=== PATIENT | female | born 1955 | race Two or more races ===

== ENCOUNTER 2025-05-07 20:09 | Emergency (ER) | payer OTHER ==
[~2025-05-07] VITALS: Ht 160 cm; Wt 71.2 kg
[2025-05-07] MEDS ORDERED: AMBIEN5 MG (20:24)
[2025-05-07] MEDS ORDERED: ZOLPIDEM TART1.75 MG (20:25)
[2025-05-07] MEDS ORDERED: LINZESS145 MCG (20:25)
[2025-05-07] MEDS ORDERED: HORIZANT300 MG (20:25)
[2025-05-07] MEDS ORDERED: PROMETHAZINE-D473 M1 (20:25)
[2025-05-07] MEDS ORDERED: ROSUVASTATIN CA20 MG (20:26)
[2025-05-07] MEDS ORDERED: B COMPLEX1 EACH (20:26)
[2025-05-07] MEDS ORDERED: PROTONIX40 MG (20:26)
[2025-05-07] MEDS ORDERED: VITAMIN C100 MG (20:27)
[2025-05-07] MEDS ORDERED: FAMOTIDINE/PF 20 MG/2 ML VIAL IV ONE (21:00)
[2025-05-07] MEDS ORDERED: ONDANSETRON HCL 2 MG/ML VIAL IV ONE (21:00)
[2025-05-07] MEDS ORDERED: 0.9 % SODIUM CHLORIDE 1,000 ML IV SCH (21:00)
[2025-05-07] MEDS ORDERED: ONDANSETRON HCL 2 MG/ML VIAL ONE (21:38)
[2025-05-07] MEDS ORDERED: FAMOTIDINE/PF 20 MG/2 ML VIAL ONE (21:38)
[2025-05-07 22:18] LABS: BASO % 0.3 % (0.1-1.2); EOS # 0.01 (0.04-0.54); EOS % 0.1 % (0.7-7.0); LYMPH # 0.39 (1.18-3.74); LYMPH % 3.5 % (19.3-53.1); MEAN PLATELET VOLUME 9.50 fl (9.4-12.4); MONO # 0.29 (0.24-0.82); MONO % 2.6 % (4.7-12.5); NEUT # 10.29 (1.56-6.13); NEUT % 93.2 % (34.0-71.1); RED CELL DISTRIBUTION WIDTH 12.6 % (11.6-14.4)
[2025-05-07 22:20] LABS: ERYTHROCYTE SEDIMENTATION RATE 22 mm/hr (0-30)
[2025-05-07 22:44] LABS: ALT/SGPT 53.0 U/L (12-78); AST/SGOT 33.0 U/L (15-37); BILIRUBIN TOTAL 0.92 mg/dL (0.3-1.2); BUN CREA RATIO 19.0 (7.0-25.0); CREATININE SERUM 0.86 mg/dL (0.55-1.02); GFR 65.81; GLOBULINA 4.2 G/DL (2.4-3.5); GLUCOSE FASTING 135.0 mg/dL (65-100); OSMOLALITY SERUM 286.0 MOSM/KG (275-295)
[2025-05-08 00:10] LABS: COVID-19 AG NEGATIVE (NEGATIVE)
[2025-05-08 01:29] LABS: URINE APPEARANCE Clear; URINE BILIRRUBIN Small (NEGATIVE); URINE BLOOD Negative; URINE COLOR Dark Yellow; URINE GLUCOSE Negative (NEGATIVE); URINE LEUKOCYTE Negative; URINE NITRATE Negative; URINE PROTEIN Trace (NEGATIVE); URINE UROBILINOGEN 0.2 E.U./dl
[2025-05-08 01:33] LABS: URINE BACTERIA 662.2 uL (0.0-1933); URINE EPITHELIAL CELLS 12.4 uL (0.0-38.8); URINE RBC 14.4 uL (0.0-20.8); URINE WBC 5.5 uL (0.0-23.2)
[2025-05-08 02:20] LABS: URINE CAST 0.28 uL (0.0-1.40); URINE KETONE 80 (NEGATIVE)
[2025-05-08] MEDS ORDERED: PROMETHAZINE HCL 50 MG/ML AMPUL IM ONE (03:04)
[2025-05-08] MEDS ORDERED: PROMETHAZINE HCL 25 MG/ML AMPUL IM STA (03:04)
[2025-05-08] MEDS ORDERED: OxyCODONE HCL ER 10MG TAB (OxyCONTIN) PO STA (05:20)
[2025-05-08] MEDS ORDERED: OXYCONTIN10 M1 PO (06:15)
== END 2025-05-08 06:24 ==
LOC: ER 20:10
PROVIDERS: Student in an Organized Health Care Education/Training Program
DX: I88.0 Nonspecific mesenteric lymphadenitis (principal); K52.89 Other specified noninfective gastroenteritis and colitis; Z20.822 Contact with and (suspected) exposure to COVID-19; Z88.8 Allergy status to other drugs, medicaments and biological substances